=== PATIENT | male | born 1990 | race Caucasian/White ===

== ENCOUNTER 2021-05-30 14:34 | Emergency (ER) | payer SELFPAY ==
[~2021-05-30] VITALS: Ht 185.4 cm; Wt 250.0 kg
[2021-05-30 14:39] VITALS: BP 0/0
[2021-05-30] MEDS ORDERED: SODIUM BICARBONATE 8.4% 1 MEQ/ML 50ML SYR IV ONE ×2 (14:57→15:06)
[2021-05-30] MEDS ORDERED: EPINEPHRINE 0.1MG/ML (1:10,000) 10ML SYR ONE ×2 (14:58→15:06)
== END 2021-05-30 17:09 ==
LOC: ER 14:34
DX: I46.9 Cardiac arrest, cause unspecified (principal); Z98.890 Other specified postprocedural states
CPT/HCPCS: 31500; 36556; 82962; 99291; J3490